=== PATIENT | male | born 1965 | race Caucasian/White ===

== ENCOUNTER → 2022-09-13 13:06 | Outpatient (CLI) | payer OTHER, SELFPAY ==
[2022-09-13 14:01] LABS: COVID19 -Nasal RAPID Negative (Negative)
== END ==
PROVIDERS: PCP Physician Assistant Medical; Visit Provider Surgery
DX: Z01.812 Encounter for preprocedural laboratory examination (principal); Z20.822 Contact with and (suspected) exposure to COVID-19
CPT/HCPCS: 87635; C9803

== ENCOUNTER 2022-09-14 08:50 | Day surgery (SDC) | payer OTHER, SELFPAY ==
[2022-09-14 09:07] VITALS: BMI 29.0
[2022-09-14 09:13] VITALS: BP 133/68; PULSE 61; RESP 16; TEMP 36.2; O2SAT 97
[2022-09-14] MEDS: LACTATED RINGERS 1,000 ML 42 ML IV (09:17)
--- NOTE | 2022-09-14 09:51 | PM.OP.EGD ---
Operative Date/Time/Diagnoses Date of procedure: 09/14/22 Procedure & Clinicians Study performed: Diagnostic EGD Indications: History of cirrhosis and esophageal varices Procedure Notes Procedure in detail: Prior to the procedure, history and physical was performed, and patient medications and allergies were reviewed. Preprocedure nursing history and assessment was reviewed. Patient identification and proposed procedure were verified by the physician and nurse in the procedure room. The physical status of the patient was reassessed after the procedure. After informed consent was obtained including risks, benefits, and alternatives, the scope was passed under direct vision. Throughout the procedure, the patient's blood pressure, pulse, and oxygen saturations were monitored continuously. The upper endoscope was introduced through the mouth and advanced to the 2nd portion of the duodenum. Retroflexion was performed in the stomach. The patient tolerated the procedure well. A single column of grade 1 varices measuring 5 mm in diameter was noted in the distal esophagus extending to in terminating at the GE junction. The Z-line was regular. The entire examined stomach was normal appearing. Entire examined duodenum was normal appearing Impression: Grade 1 esophageal varices Regular Z-line Normal appearing stomach Normal appearing duodenum Complications: other (0 EBL. NO COMPLICATIONS) Post-procedure Plan for aftercare: Repeat EGD in 1 year for surveillance of esophageal varices Resume home medications Resume previous diet Follow-up in GI Clinic as previously recommended Patient has a contact number available for emergencies. The signs and symptoms of potential delayed complications were discussed with the patient. Return to normal activities tomorrow. Written discharge instructions were provided to the patient. Discharge home with escort
--- NOTE | 2022-09-14 09:51 | PM.HP.1 ---
History of Present Illness History of Present Illness Chief complaint: EGD Narrative: Cirrhosis Patient History Family & Social History Tobacco & Substance use: Smoking Status Never smoker alcohol intake current alcohol intake frequency 0-2 drinks per day Substance Use Type does not use Meds Home Medications and Allergies Home Medications Medication Instructions Recorded Confirmed Type lisinopril 20 mg tablet 20 mg PO DAILY 09/14/22 09/14/22 History metoprolol succinate 50 mg 50 mg PO DAILY 09/14/22 09/14/22 History tablet,extended release 24 hr trazodone 50 mg tablet 50 mg PO BEDTIME 09/14/22 09/14/22 History Allergies Allergy/AdvReac Type Severity Reaction Status Date / Time No Known Drug Allergies Allergy Verified 09/14/22 09:05 Review of Systems Review of Systems Narrative: Negative Exam Vital Signs (past 8 hours): - 09/14/22 09:13 Temperature 97.2 F L Pulse Rate 61 Respiratory Rate 16 Blood Pressure 133/68 Pulse Oximetry 97 Oxygen Delivery Method Room Air Oxygen Delivery Method Room Air Narrative Exam Narrative: Awake alert and oriented x3, pupils equal round reactive to light, oropharynx clear, heart regular rate and rhythm, lungs clear to auscultation bilaterally, abdomen nontender and nondistended, extremities without edema, no gross neurologic deficits noted Assessment & Plan Assessment & Plan narrative: History of cirrhosis, EGD to rule out varices Time Spent With Patient Critical Care time: I spent a total of [] minutes of critical care time on this patient's care today; this time is exclusive of procedural time.
[2022-09-14 10:08] VITALS: BP 110/71; PULSE 69; RESP 12; TEMP 37.2; O2SAT 96
[2022-09-14 10:15] VITALS: BP 111/78; PULSE 74; RESP 16; O2SAT 98
[2022-09-14 10:22] VITALS: BP 123/74; PULSE 60; RESP 16; O2SAT 96
[2022-09-14 10:25] VITALS: BP 129/79; PULSE 56; RESP 20; TEMP 37.1; O2SAT 97
[2022-09-14 10:31] VITALS: BP 117/70; PULSE 58; RESP 16; TEMP 36.6; O2SAT 97
== END 2022-09-14 10:38 | disposition home or self-care (01) ==
PROVIDERS: PCP Physician Assistant Medical; Referring Provider Internal Medicine; Visit Provider Internal Medicine
PROC: 0DJ08ZZ Inspection of Upper Intestinal Tract, Via Natural or Artificial Opening Endoscopic (ICD-10-PCS; CPT 43235; principal; 2022-09-14 10:00)
DX: I85.10 Secondary esophageal varices without bleeding (principal); K70.30 Alcoholic cirrhosis of liver without ascites
CPT/HCPCS: 43235; J2704; J3010